=== PATIENT | female | born 1995 | race Caucasian/White ===

== ENCOUNTER 2018-11-27 19:12 | Emergency (ER) | payer OTHER ==
--- OUTSIDE RECORDS SUMMARY | 2018-11-27 19:34 | XMS REPORT | Continuity of Care Document ---
:1995 External Reference #:[id number] Author Name Ernie Tamayo MD (transmitted by agent of provider Kane Waldrop) Address [address] [place] [address] Care Team Providers Name Role Phone [facility] Care Team Information Foreign Broadcast Specialist [phone] Problems Active Problems Provider Date Other synovitis and tenosynovitis, left ankle and Vincent Estrada MD Onset: foot Social History Type Date Description Comments Sex Unknown Tobacco Use Start: Unknown Patient has never smoked Smoking Status Reviewed: 11/20/18 Patient has never smoked Allergies, Adverse Reactions, Alerts Description No Known Drug Allergies Medications Active Medications SIG Qnty Indications Ordering Provider Date Anahi Gimenez FNPC 1.5-30mg-mcg Tablets Immunizations Description No Information Available Vital Signs Date Vital Result Comment 11/20/2018 7:55am Height 66 inches 5'6" Weight 135.00 lb BP Systolic 108 mmHg BP Diastolic 66 mmHg Respiratory Rate 17 /min Pain Level 0 BMI (Body Mass Index) 21.8 kg/m2 11/01/2018 8:18am Height 66 inches 5'6" Weight 135.50 lb Heart Rate 56 /min BP Systolic 126 mmHg BP Diastolic 70 mmHg Respiratory Rate 12 /min Pain Level 0 BMI (Body Mass Index) 21.9 kg/m2 Results Description No Information Available Procedures Description No Information Available Medical Devices Description No Information Available Encounters Type Date Location Provider Dx Diagnosis Office Visit 11/01/2018 Orthopedic Ernie Martinez M25.511 Pain in right 8:00a [facility] Tamayo MD shoulder M75.51 Bursitis of right shoulder Office Visit 07/17/2018 Orthopedic Vincent Estrada M76.822 Posterior tibial 1:30p Services Of tendinijonas, left C.M.A. leg Office Visit 06/29/2018 Orthopedic iVncent Estrada, M65.872 Other synovitis 9:00a Services Of and Juan Jose tenosynovitis, left ankle and foot M76.822 Posterior tibial tendinitis, left leg Assessments Date Code Description Provider 11/20/2018 M75.51 Bursitis of right shoulder Ernie Tamayo MD 11/01/2018 M25.511 Pain in right shoulder Ernie Tamayo MD 11/01/2018 M75.51 Bursitis of right shoulder Ernie Tamayo MD 07/17/2018 M76.822 Posterior tibial tendinitis, left leg Vincent Estrada MD 06/29/2018 M65.872 Other synovitis and tenosynovitis, left Vincent Estrada MD ankle and foot 06/29/2018 M76.822 Posterior tibial tendinitis, left leg Vincent Estrada MD Plan of Treatment 11/20/2018 - Ernie Tamayo, MDM75.51 Bursitis of right shoulderFollow up: Follow up: as needed. She may follow up very soon for a cortisone injection. Functional Status Description No Information Available Mental Status Description No Information Available Referrals Description No Information Available
--- NOTE | 2018-11-27 20:34 | ED ---
Upper Extremity Pain - HPI Summary HPI Summary: 23-year-old female presents with right shoulder pain today. States she was pushing open a door when she felt her pain or shoulder. She has bursitis in her shoulder. She had an MRI a couple weeks ago. She is nauseous with range of motion of the shoulder. No numbness or tingling. States not able to raise arm overhead as normal due to pain. Hasn't taking anything for pain. She states that MRI also especially has a biceps tendinitis. - History of Current Complaint Chief Complaint: EDExtremityUpper Stated Complaint: RT ARM PAIN PER PT Time Seen by Provider: 11/27/18 19:55 - Allergies/Home Medications Allergies/Adverse Reactions: Allergies Allergy/AdvReac Type Severity Reaction Status Date / Time No Known Allergies Allergy Verified 11/02/18 14:22 Home Medications: Home Medications Norethindrone-E.estradiol-Iron [Junel Fe 03/25 1-20 mg-Mcg] 1 tab PO DAILY [History Confirmed 11/27/18] PMH/Surg Hx/FS Hx/Imm Hx Endocrine/Hematology History: Denies: Hx Diabetes Cardiovascular History: Denies: Hx Hypertension, Hx Pacemaker/ICD History: Denies: Hx Renal Disease Sensory History: Denies: Hx Hearing Aid Psychiatric History: Denies: Hx Panic Disorder - Surgical History Surgery Procedure, Year, and Place: WISDOM TEETH Infectious Disease History: No Infectious Disease History: Denies: Traveled Outside the [place] in Last 30 Days - Family History Known Family History: Positive: Non-Contributory - Social History Alcohol Use: Rare Substance Use Type: Reports: None Smoking Status (MU): Never Smoked Tobacco Review of Systems Negative: Fever Negative: Chest Pain Negative: Shortness Of Breath Positive: Myalgia - right shoulder pain All Other Systems Reviewed And Are Negative: Yes Physical Exam Triage Information Reviewed: Yes Vital Signs On Initial Exam: Initial Vitals Temp Pulse Resp BP Pulse Ox 99.1 F 66 16 155/88 100 11/27/18 19:22 11/27/18 19:22 11/27/18 19:22 11/27/18 19:22 11/27/18 19:22 Vital Signs Reviewed: Yes Appearance: Positive: Well-Appearing Skin: Positive: Warm, Dry Head/Face: Positive: Normal Head/Face Inspection Eyes: Positive: Normal, Conjunctiva Clear ENT: Positive: Pharynx normal Respiratory/Lung Sounds: Positive: Clear to Auscultation, Breath Sounds Present Cardiovascular: Positive: Normal, RRR Musculoskeletal: Positive: Strength/ROM Intact - right shoulder, Other - limited flexion shoulder, full extension, neg yearsgons, good pulses, tenderness over anterior right shoulder Neurological: Positive: Normal Psychiatric: Positive: Normal Diagnostics - Vital Signs Vital Signs Temp Pulse Resp BP Pulse Ox 11/27/18 19:22 99.1 F 66 16 155/88 100 - Laboratory Lab Statement: Any lab studies that have been ordered have been reviewed, and results considered in the medical decision making process. - Radiology shoulder Radiology Interpretation Completed By: ED Physician Summary of Radiographic Findings: no fracture Course/Dx - Course Course Of Treatment: 23-year-old female presents with right shoulder pain today. States she was pushing open a door when she felt her pain or shoulder. She has bursitis in her shoulder. She had an MRI a couple weeks ago. She is nauseous with range of motion of the shoulder. No numbness or tingling. States not able to raise arm overhead as normal due to pain. Hasn't taking anything for pain. She states that MRI also especially has a biceps tendinitis. On exam tenderness over left anterior shoulder and neurovascular intact. Negative Yergason's. X-ray normal. We'll have follow-up with further. Patient understands agrees with plan. - Diagnoses Differential Diagnosis/HQI/PQRI: Positive: Fracture (Closed), Strain, Sprain Provider Diagnoses: Right shoulder pain Discharge ED - Sign-Out/Discharge Documenting (check all that apply): Patient Departure Patient Received Moderate/Deep Sedation with Procedure: No - Discharge Plan Condition: Good Disposition: HOME Patient Education Materials: Shoulder Pain (ED) Referrals: Halie Page NP [Primary Care Provider] - My Kellogg MD [Medical Doctor] - Additional Instructions: Take Tylenol and ibuprofen every 6 hours as needed for pain Ice/heat Can rest for one day and then need to do range of motion activities for shoulder Follow up with ortho Return to ED if develop any new or worsening symptoms - Billing Disposition and Condition Condition: GOOD Disposition: Home
[2018-11-27 20:57] VITALS: BP 122/81
== END 2018-11-27 20:57 | disposition home or self-care (01) ==
LOC: ED 19:12
DX: M25.511 Pain in right shoulder (principal)
CPT/HCPCS: 99282